=== PATIENT | male | born 1980 | race Two or more races ===

== ENCOUNTER 2022-03-08 10:37 | Emergency (ER) | payer MEDICAID ==
[~2022-03-08] VITALS: Ht 165.1 cm; Wt 63.5 kg
--- NOTE | 2022-03-08 10:48 | NUR ---
Dr Rowe at the bedside for MSE.
[2022-03-08] MEDS ORDERED: NEOMY/BACITRA/POLYMYXIN B OINT UD PACKET TP ONE ×2 (11:00→11:01)
[2022-03-08] MEDS ORDERED: IBUPROFEN 600 MG TABLET PO ONE (11:00)
[2022-03-08] MEDS ORDERED: IBUPROFEN 600 MG TABLET ONE (11:01)
[2022-03-08] MEDS ORDERED: IBUP-1955 PO (11:02)
[2022-03-08] MEDS ORDERED: CEPH500T PO (11:02)
[2022-03-08] MEDS ORDERED: MUPI22OI2 TP (11:02)
[2022-03-08 11:14] VITALS: BP 103/50
--- NOTE | 2022-03-08 11:24 | NUR ---
Patient discharged to home in stable condition. Written and verbal after care instructions given. Patient verbalizes understanding of instructions. Stressed follow up or return to ER for worsening s/s.
== END 2022-03-08 11:24 | disposition home or self-care (01) ==
LOC: ER 10:37
DX: S80.212D Abrasion, left knee, subsequent encounter (principal); L03.116 Cellulitis of left lower limb; X58.XXXD Exposure to other specified factors, subsequent encounter
CPT/HCPCS: A4663

== ENCOUNTER 2022-05-18 16:55 | Emergency (ER) | payer MEDICAID ==
[~2022-05-18] VITALS: Ht 165.1 cm; Wt 63.5 kg
[~2022-05-18 16:55] MED LIST: CEPH500T PO; IBUP-1955 PO; MUPI22OI2 TP
[2022-05-18] MEDS ORDERED: SULF1TAB48 PO (17:26)
[2022-05-18] MEDS ORDERED: CEPH500T PO (17:26)
== END 2022-05-18 18:28 | disposition home or self-care (01) ==
LOC: ER 17:04
DX: L03.114 Cellulitis of left upper limb (principal)
CPT/HCPCS: A4663